=== PATIENT | female | born 1980 | race Caucasian/White ===

== ENCOUNTER 2021-06-19 12:11 | Emergency (ER) | payer OTHER, MEDICAID ==
[~2021-06-19] VITALS: Ht 170.2 cm; Wt 167.8 kg
[2021-06-19] MEDS ORDERED: ZPAK PO (13:11)
[2021-06-19] MEDS ORDERED: ALBUTEROL2.5 MG/0.5 INH (13:11)
[2021-06-19] MEDS ORDERED: VENTOLIN HFA 1818 GM INH (13:11)
[2021-06-19 13:20] VITALS: BP 143/72
== END 2021-06-19 13:21 | disposition home or self-care (01) ==
LOC: M.ERS 12:11
DX: J18.9 Pneumonia, unspecified organism (principal); Z20.822 Contact with and (suspected) exposure to COVID-19; E66.9 Obesity, unspecified; Z88.0 Allergy status to penicillin; Z90.710 Acquired absence of both cervix and uterus; Z91.041 Radiographic dye allergy status